=== PATIENT | female | born 1955 | race Caucasian/White ===

== ENCOUNTER 2021-10-18 17:46 | Emergency (ER) | payer OTHER ==
[~2021-10-18] VITALS: Ht 152.4 cm; Wt 63.0 kg
[2021-10-18] MEDS ORDERED: CALTRATE 600 +1 EACH (19:14)
[2021-10-19] MEDS ORDERED: PYRIDIUM DS200 MG PO (00:13)
[2021-10-19] MEDS ORDERED: CIPRO500 MG PO (00:13)
== END 2021-10-19 01:21 | disposition home or self-care (01) ==
LOC: ER 17:46
DX: N39.0 Urinary tract infection, site not specified (principal); Z03.818 Encounter for observation for suspected exposure to other biological agents ruled out; R10.31 Right lower quadrant pain; R10.32 Left lower quadrant pain

== ENCOUNTER 2023-08-19 07:38 | Outpatient (CLI) | payer OTHER ==
[~2023-08-19 07:38] MED LIST: CALTRATE 600 +1 EACH; CIPRO500 MG PO; PYRIDIUM DS200 MG PO
== END 2023-08-19 07:45 | disposition home or self-care (01) ==
LOC: RX STUDY 07:38
PROVIDERS: ATTEND Surgery
DX: R10.30 Lower abdominal pain, unspecified (principal)